=== PATIENT | female | born 1960 | race Caucasian/White ===

== ENCOUNTER 2025-02-24 09:10 | Outpatient (CLI) | payer OTHER, SELFPAY ==
--- NOTE | 2025-02-24 09:40 | NEURO_ITS ---
Impression: # Complains of pain in lower extremities. Significant edema bilaterally. # Extremely poor responses seen proximally with minimal dispersed responses. # Needle/ EMG exam with minimal motor unit potentials, also proximally. # Findings consistent with neuropathy but considering severe edema, clinical correlation recommended. Nerve Conduction Studies ?Stim Site NR Peak (ms) P-T Amp (?V) Site1 Site2 Delta-P (ms) Dist (cm) Leonardo (m/s) Left Sup Fibular Anti Sensory (Ant Lat Mall)??? NO RESPONSE 14 cm NR 14 cm Ant Lat Mall 16.0 Right Sup Fibular Anti Sensory (Ant Lat Mall)??? NO RESPONSE 14 cm NR 14 cm Ant Lat Mall 16.0 Left Sural Anti Sensory (Lat Mall)??? NO RESPONSE Calf NR Calf Lat Mall 16.0 Right Sural Anti Sensory (Lat Mall)??? NO RESPONSE Calf NR Calf Lat Mall 16.0 ?Stim Site NR Onset (ms) O-P Amp (mV) Site1 Site2 Delta-0 (ms) Dist (cm) Leonardo (m/s) Left Peroneal Motor (Vastus Med)??? NO RESPONSE Ankle ? 13.8 0.0 Popit Ankle 0.0 Popit NR Right Peroneal Motor (Vastus Med)??? NO RESPONSE Ankle ? 0.9 6.8 Popit Ankle 12.9 0.0 Popit ? 13.8 0.0 Left Tibial Motor (Abd Duenas Brev)??? NO RESPONSE Ankle NR Knee Ankle 0.0 Knee NR Right Tibial Motor (Abd Duenas Brev) Ankle ? 5.9 0.3 F Wave Studies ?NR F-Lat (ms) L-R F-Lat (ms) Left Peroneal (Mrkrs) (EDB)??? NO RESPONSE NR Right Peroneal (Mrkrs) (EDB)??? NO RESPONSE NR Left Tibial (Mrkrs) (Abd Hallucis)??? NO RESPONSE NR Right Tibial (Mrkrs) (Abd Hallucis)??? DISPERSED RESPONSE NR Electromyography ?Side Muscle Nerve Root Ins Act Fibs Amp Dur Recrt Comment Right AntTibialis Dp Br Fibular L4-5 Nml Nml Nml Nml Nml Right Gastroc Tibial S1-2 Nml Nml Nml Nml Nml Right Fibularis Long Sup Br Fibular L5-S1 Nml Nml Nml Nml Nml Right Flex Dig Long Tibial L5-S2 Nml Nml Nml Nml Nml Right Ext Dig Brev Dp Br Fibular L5, S1 Nml Nml Nml Nml Nml Right QuadratusFem QuadFemoris L4-5, S1 Nml Nml Nml Nml Nml Left AntTibialis Dp Br Fibular L4-5 Nml Nml Nml Nml Nml Left Gastroc Tibial S1-2 Nml Nml Nml Nml Nml Left Fibularis Long Sup Br Fibular L5-S1 Nml Nml Nml Nml Nml Left Flex Dig Long Tibial L5-S2 Nml Nml Nml Nml Nml Left Ext Dig Brev Dp Br Fibular L5, S1 Nml Nml Nml Nml Nml Left QuadratusFem QuadFemoris L4-5, S1 Nml Nml Nml Nml Nml
--- OUTSIDE RECORDS SUMMARY | 2025-02-24 09:46 | XMS_ITS | Clinical Summary ---
Author Organization [facility] Address [address] [place] [phone] Care Team Providers Care Exhibition Organiser Name Role Phone Miscellaneous, Not In File Unavailable Unava Rony Haley MD Primary Care Provider Allergies No known active allergies Medications clopidogrel (PLAVIX) 75 mg tablet Take 1 tablet (75 mg total) by mouth Active atorvastatin (LIPITOR) 80 mg tablet TK 1 T PO QD 2 8 Active aspirin 325 mg tablet Take by mouth. Activ e ACCU-CHEK KIMBERLY PLUS TEST STRP strip U 1 STRIP QD 3 8 Active ACCU-CHEK KIMBERLY PLUS METER misc U UTD 0 8 Active ACCU-CHEK SOFTCLIX LANCETS lancets USE DIRECTED TO TEST ONCE D 3 8 Active metFORMIN (GLUCOPHAGE) 500 mg tablet TK 1 T PO BID 2 8 Active omega 0-qei-xyu-fish oil 1,000 mg (120 mg-180 mg) capsule daily Active allopurinoL (ZYLOPRIM) 300 mg tablet Take 1 tablet (300 mg total) by mouth daily 2 Active albuterol HFA (PROVENTIL HFA,VENTOLIN HFA,PROAIR HFA) 90 mcg/actuation inhaler albuterol sulfate HFA 90 mcg/actuation aerosol inhaler INHALE 2 PUFFS BY MOUTH EVERY 4 TO 6 HOURS NEEDED Active hydroCHLOROthia zide (HYDRODIURIL) 25 mg tablet Take 1 tablet (25 mg total) by mouth daily 30 tablet 1 3 Active Additional Information Patient not taking.Reported on 12/14/[address] (CYMBALTA) 60 mg capsule Take 1 capsule (60 mg total) by mouth daily Active traMADoL (ULTRAM) 50 mg tablet 4 Active traZODone (DESYREL) 100 mg tablet TAKE 1/2 TO 1 TABLET BY MOUTH AT BEDTME NEEDED Active furosemide (LASIX) 40 mg tablet Take 1 tablet (40 mg total) by mouth daily 5 Active NIFEdipine CC 30 mg 24 hr tablet Take 1 tablet (30 mg total) by mouth daily 5 Active carvediloL (COREG) 25 mg tablet Take 1 tablet (25 mg total) by mouth 2 (two) times a day 5 Active Active Problems Problem Noted Date Diagnosed Date Low back pain 03/12/2023 Hyperkalemia 03/12/2023 COVID-19 03/11/2023 Hypertension, essential 12/13/2020 Carotid artery stenosis 12/13/2020 Dyslipidemia 12/13/2020 Knee pain 12/13/2020 Neck pain 12/13/2020 Shoulder pain 12/13/2020 Stress incontinence of urine 12/13/2020 Urinary tract infectious disease 12/13/2020 Type 2 diabetes mellitus with hyperlipidemia Venous insufficiency of leg 08/28/2017 Personal history of nicotine dependence 08/29/19 18 Carpal tunnel syndrome, left 08/14/2017 Calculus of gallbladder with acute cholecystitis without obstruction 03/05/2017 Assessment & Plan (03/05/2017 11:05 AM CDT): The procedure along with risks and benefits were explained to the patient and her . All questions were answered. The patient is on plavix so will schedule surgery for 5 days of holding this medication after speaking with prescribing physician. Patient was educated on diet. Encouraged to go to ER if fever spikes or symptoms become worse. Primary osteoarthritis of left knee 11/22/2016 Obesity 11/22/2016 Anxiety 03/24/2016 Atherosclerosis of renal artery 05/31/2015 Atherosclerosis of cachil dehe ar teries of extremities with intermittent claudication, unspecified extremity 05/11/2015 Cerebrovascular accident (CVA) 03/29/2015 Occlusion and stenosis of bilateral carotid valeriy yang 03/29/2015 Encounters Date Type Department Care Team Description 01/28/2025 1:00 PM CDT - 01/28/2025 11:59 PM CDT Hospital Encounter [facility] Respiratory [address] [place] [address] Discharge Disposition: Discharge to home or self care 01/25/2025 11:15 AM CDT [facility] [id number] [place] [address] Medical Office Building [address] [place] [phone] Lester Rivera MD Bilateral carotid artery stenosis (Primary Dx); PVD (peripheral vascular disease) with claudication; Morbid obesity (HCC); Renal artery stenosis 01/25/2025 Orders Only [facility] Medicine Surgery [id number] [place] [address] Office [facility] [address] [place] [phone] Lester Rivera MD Stenosis of carotid artery, unspecified laterality (Primary Dx); PVD (peripheral vascular disease) with claudication 01/19/2025 10:08 AM CDT - 01/19/2025 11:59 PM CDT Hospital Encounter [facility] Imaging and Radiology [address] [place] [address] Bilateral carotid artery stenosis Discharge Disposition: Discharge to home or self care 12/29/2024 11:58 AM CDT - 12/29/2024 11:59 PM CDT Hospital Encounter [facility] Vascular Lab [address] [place] [address] PVD (peripheral vascular disease) with claudication Discharge Disposition: Discharge to home or self care 12/29/2024 11:58 AM CDT - 12/29/2024 11:59 PM CDT Hospital Encounter [facility] Imaging and Radiology [address] [place], [place] [id number] PVD (peripheral vascular disease) with claudication Discharge Disposition: Discharge to home or self care 12/14/2024 11:45 AM CDT [facility] [address] [place] [address] Office Building [address] [place] [phone] Lester Rivera MD Bilateral carotid artery stenosis (Primary Dx); Stenosis of carotid artery, unspecified laterality; PVD (peripheral vascular disease) with claudication; Morbid obesity (HCC) 11/26/2024 Orders Only [facility] Medicine Surgery [address] [facility] Medical Office Building [address] [phone] Lester Rivera MD Stenosis of carotid artery, unspecified laterality (Primary Dx) from Last 3 Months Immunizations Immunization Administration Dates Next Due Influenza, Quadrivalent, Spl it, Preservative Free, Intramuscular 03/13/2023,03/23/2015 Pfizer SARS-CoV-2 Monovalent Vaccination (12+ Yrs) PURPLE 08/20/2020,07/30/2020 Surgical History Surgery Date Site/Laterality Comments CORONARY ARTERY BYPASS GRAFT OTHER SURGICAL HISTORY 06/03/2014 - 06/02/2015 Right carotid endarectomy CHOLECYSTECTOMY 03/11/2017 Laparoscopic cholecystectomy Medical History Medical History Date Comments Hypertension Hypercholesteremia Stroke (HCC) Social History Tobacco Use Types Packs/Day Years Used Date Smoking Tobacco: Former Smokeless Tobacco: Never Tobacco Cessation:Counseling Given: Not Answered Alcohol Use Standard Drinks/Week Comments No 0 (1 standard drink = 0.6 oz pur e alcohol) Social Connection and Isolation Panel Answer Date Recorded In a typical week, how many times do you talk on the phone with family, friends, or neighbors? More than three times a week 03/12/2023 How often do you get togethe r with friends or relatives? More than three times a week 03/12/2023 How often do you attend chur or cheondoism services? Never 03/12/2023 Do you belong to any clubs o r organizations such as judaism groups, unions, fraternal or athletic groups, or school groups? No 03/12/2023 How often do you attend meet ings of the clubs or organizations you belong to? Never 03/12/2023 Are you , , di vorced, , never , or living with a partner? 03/12/2023 AUDIT-C Answer Date Recorded Q1: How often do you have a drink containing alc ohol? Never 03/05/2024 Average Number of Drinks Not on file 024 Frequency of Binge Drinking Not on file 08/2023 Overall Financial Resource Strain (CARDIA) Answe r Date Recorded How hard is it for you to pa y for the very basics like food, housing, medical care, and heating? Hard 03/12/2023 Hunger Vital Sign Answer Date Recorded Within the past 12 months, y ou worried that your food would run out before you got the money to buy more. Never true 03/12/20 23 Within the past 12 months, t he food you bought just didn't last and you didn't have money to get more. Never true 03/12/2023 PRAPARE - Transportation Answer Date Re corded In the past 12 months, has l ack of transportation kept you from medical appointments or from getting medications? No 03/03 In the past 12 months, has l ack of transportation kept you from meetings, work, or from getting things needed for daily living? No 03/12/2023 Housing Stability Vital Sign Answer Andrew e Recorded In the last 12 months, was t here a time when you were not able to pay the mortgage or rent on time? No 03/12/2023 In the last 12 months, how many places have you lived? 1 03/12/2023 In the last 12 months, was t here a time when you did not have a steady place to sleep or slept in a alf (including now)? No 03/12/2023 Personal Safety Answer Date Recorded Have you ever been in or are you currently in a harmful physical or emotional relationship or is someone making you feel afraid or unsafe? Denies 03/11/2023 Education Answer Date Recorded What is the highest level of school you have completed or the highest degree you have received? 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 Gender Identity Not on file Sexual Orientation Not on file Obstetrics History Last Filed Vital Signs Vital Sign Reading Time Taken Comments Blood Pressure 198/88 01/25/2025 11:54 AM CDT Pulse 77 12/14/2024 10:50 AM CDT Temperature 36.2 C (97.1 F) 01/25/2025 11:09 AM CDT Respiratory Rate 16 03/13/2023 3:52 PM CDT Oxygen Saturation 95% 03/13/2023 3:52 PM CDT Inhaled Oxygen Concentration - - Weight 143.3 kg (316 lb) 01/25/2025 11:09 AM CDT Height 168.9 cm (5' 6.5) 12/14/2024 10:50 AM CD T Body Mass Index 50.24 12/14/2024 10:50 AM CDT Plan of Treatment Health Maintenance Due Date Last Done Comments Albumin Creatinine Ratio, Urine 1962 Breast Cancer Screening-Mammogram 1962 Cervical Cancer Screening 1962 Colon Cancer Screening-Colonoscopy 1962 Depression Screening 1962 Hemoglobin A1C 1962 Hepatitis C Screening 1962 Dilated Eye Exam 1962 Foot Exam 1962 DTaP/Tdap/Td Vaccine (1 - Tdap) 1973 Hepatitis B Screening 02/16/1980 Regular Well Visit/Exam 18-64 02/16/1980 Pneumococcal vaccine <65 (1 of 2 - PCV) 1981 Zoster Vaccine (1 of 2) 02/16/2012 Lipid Panel 03/06/2017 03/06/2016, 03/20/2015 eGFR 03/13/2024 03/13/2023, 03/03, 03/11/2023, Additional history exists Covid-19 Vaccine (3 - 2024-2 6 season) 2025 08/20/2020, 07/30/2020 Influenza Vaccine (#1) 2025 , 03/13/2023, 03/23/2015 Procedures Procedure Name Priority Date/Time Associated Diagnosis Comments BLOOD GAS, ARTERIAL STAT 01/28/2025 2:15 PM CDT CTA HEAD NECK W WO CONTRAST Schedule Routine, Read Routine (OP Routine) 01/19/2025 11:13 AM CDT Bilateral carotid artery stenosis US ARTERIAL DOPPLER LOWER EXTREMITY BILATERAL Schedule Routine, Read Routine (OP Routine) 12/29/2024 1:41 PM CDT PVD (peripheral vascular disease) with claudication CTA ABDOMINAL AORTA AND BILATERAL ILIOFEMORAL RUNOFF Schedule Routine, Read Routine (OP Routine) 12/29/2024 12:37 PM CDT PVD (peripheral vascular disease) with claudication POCT CREATININE FOR CONTRAST EVALUATION Routine 12/29/2024 12:13 PM CDT EGFR Routine 03/13/2023 3:37 AM CDT SERUM LIPID PANEL Routine 03/06/2016 3:1 7 AM CDT from Last 3 Months or Most Recently Relevant to Health Maintenance Results * (ABNORMAL) Blood gas, arterial (01/28/2025 2:15 PM CDT) pH, Art 7.41 7.35 - 7.45 PCO2, Arterial 46(H) 35 - 45 mmHg [facility] (ED) PO2, Arterial 68(L) 83 - 108 mmHg [facility] (ED) HCO3 Art (Calculated) 28 20 - 30 mmol/L [facility] (ED) BE, art 4 mmol/L [facility] (ED) Comment: Interpretive Data No Reference Range Established Current Interpretive Data was last revised on 2017 O2 Sat Art (Measured) 93 90 - 95 % [facility] (ED) Blood 01/28/2025 2:15 PM CDT 01/28/2025 2:19 PM CDT us Rony Sales DO LAB BLOOD ORDERABLES Final R esult AASHISH DELAROSA (OSCODA) 1 [facility] [place] [address] * CTA Head Neck W WO Contrast (01/19/2025 11:13 AM CDT) Anatomical Region Laterality Modality Head and Neck N/A Computed Tomogra phy 01/20/2025 8:32 AM CDT Impressions 01/22/2025 11:00 AM CDT Cervical left internal carotid bulb stenosis 50% by NASCET criteria . Cervical right internal carotid bulb stenosis 40% by NASCET criteria . Calcified plaque with moderate bilateral cavernous internal carotid stenosis. Moderate to severe right and moderate left vertebral origin stenosis. No intracranial large vessel occlusion or significant stenosis. Electronically signed by: Carlyn Liriano M.D. Narrative 01/22/2025 11:00 AM CDT EXAMINATION: CTA HEAD NECK W WO CONTRAST HISTORY: CAROTID STENOSIS TECHNIQUE: Noncontrast CT of the head was obtained from skull base to vertex, according to standard protocol. Subsequently, CT angiogram of the neck and [place] of [place] was performed after the uneventful intravenous administration of 122 mL Optiray 350 according to the head and neck angiography protocol with multiplanar reconstructions including thin MIPS obtained. 3-D postprocessing was performed by the technologist on a separate workstation, and submitted for review. Separate data acquisition was obtained. COMPARISON: None. FINDINGS: Motion artifact limits the study. HEAD CT FINDINGS: There is no acute intracranial hemorrhage. There is no noncontrast evidence of acute stroke. There is no vascular hyperdensity of the M1 segments or basilar artery. There are no periventricular and deep white matter hypodensities. There are no lacunar infarcts. Cerebral volume is typical for age. Ventricles are of normal size and morphology. There is no mass effect or midline shift. ANGIOGRAPHIC FINDINGS: Atherosclerotic aortic arch with moderate calcified and soft plaque is seen.. There is no significant stenosis of the origins of the great vessels. There is no geographic area of vascular paucity in the brain. Left anterior circulation: L CCA: Calcified plaque with moderate origin and distal stenosis. L carotid bifurcation: Calcified and soft plaque with moderate stenosis. L ICA proximal: Calcified and soft plaque with approximately 50 % stenosis by NASCET criteria at the proximal bulb. L ICA distal: Calcified plaque with moderate cavernous segment stenosis L ICA terminus: no occlusion or significant stenosis L M1: no occlusion or significant stenosis L M2 branches: no occlusion or significant stenosis L A2: no occlusion or significant stenosis Right anterior circulation: R CCA: no occlusion or significant stenosis R carotid bifurcation: Calcified and soft plaque with mild stenosis R ICA proximal: Calcified and soft plaque with approximately 40% stenosis by NASCET criteria R ICA distal: Calcified plaque with moderate cavernous segment stenosis R ICA terminus: no occlusion or significant stenosis R M1: no occlusion or significant stenosis R M2 branches: no occlusion or significant stenosis R A2: no occlusion or significant stenosis Posterior circulation: L Vertebral Artery: Soft plaque with moderate origin stenosis. R Vertebral Artery: Calcified plaque with moderate to severe origin stenosis Basilar Artery: no occlusion or significant stenosis L BIOINFORMATICS ANALYST: no occlusion or significant stenosis R BIOINFORMATICS ANALYST: no occlusion or significant stenosis The major dural venous sinuses are patent. No cerebral aneurysm is seen. There is no evidence for an arteriovenous malformation. There is no suspicious cervical lymphadenopathy. Moderate disc narrowing and spondylosis noted at C5-C6 and C6-C7. Mild anterolisthesis at C3-C4 and C4-C5 is noted probably due to facet arthropathy . Limited views of the lung apices are normal. Procedure Note Carlyn Liriano MD - 01/22/2025 EXAMINATION: CTA HEAD NECK W WO CONTRAST HISTORY: CAROTID STENOSIS TECHNIQUE: Noncontrast CT of the head was obtained from skull base to vertex, according to standard protocol. Subsequently, CT angiogram of the neck and [place] of [place] was performed after the uneventful intravenous administration of 122 mL Optiray 350 according to the head and neck angiography protocol with multiplanar reconstructions including thin MIPS obtained. 3-D postprocessing was performed by the technologist on a separate workstation, and submitted for review. Separate data acquisition was obtained. COMPARISON: None. FINDINGS: Motion artifact limits the study. HEAD CT FINDINGS: There is no acute intracranial hemorrhage. There is no noncontrast evidence of acute stroke. There is no vascular hyperdensity of the M1 segments or basilar artery. There are no periventricular and deep white matter hypodensities. There are no lacunar infarcts. Cerebral volume is typical for age. Ventricles are of normal size and morphology. There is no mass effect or midline shift. ANGIOGRAPHIC FINDINGS: Atherosclerotic aortic arch with moderate calcified and soft plaque is seen.. There is no significant stenosis of the origins of the great vessels. There is no geographic area of vascular paucity in the brain. Left anterior circulation: L CCA: Calcified plaque with moderate origin and distal stenosis. L carotid bifurcation: Calcified and soft plaque with moderate stenosis. L ICA proximal: Calcified and soft plaque with approximately 50 % stenosis by NASCET criteria at the proximal bulb. L ICA distal: Calcified plaque with moderate cavernous segment stenosis L ICA terminus: no occlusion or significant stenosis L M1: no occlusion or significant stenosis L M2 branches: no occlusion or significant stenosis L A2: no occlusion or significant stenosis Right anterior circulation: R CCA: no occlusion or significant stenosis R carotid bifurcation: Calcified and soft plaque with mild stenosis R ICA proximal: Calcified and soft plaque with approximately 40% stenosis by NASCET criteria R ICA distal: Calcified plaque with moderate cavernous segment stenosis R ICA terminus: no occlusion or significant stenosis R M1: no occlusion or significant stenosis R M2 branches: no occlusion or significant stenosis R A2: no occlusion or significant stenosis Posterior circulation: L Vertebral Artery: Soft plaque with moderate origin stenosis. R Vertebral Artery: Calcified plaque with moderate to severe origin stenosis Basilar Artery: no occlusion or significant stenosis L BIOINFORMATICS ANALYST: no occlusion or significant stenosis R BIOINFORMATICS ANALYST: no occlusion or significant stenosis The major dural venous sinuses are patent. No cerebral aneurysm is seen. There is no evidence for an arteriovenous malformation. There is no suspicious cervical lymphadenopathy. Moderate disc narrowing and spondylosis noted at C5-C6 and C6-C7. Mild anterolisthesis at C3-C4 and C4-C5 is noted probably due to facet arthropathy . Limited views of the lung apices are normal. IMPRESSION: Cervical left internal carotid bulb stenosis 50% by NASCET criteria . Cervical right internal carotid bulb stenosis 40% by NASCET criteria . Calcified plaque with moderate bilateral cavernous internal carotid stenosis. Moderate to severe right and moderate left vertebral origin stenosis. No intracranial large vessel occlusion or significant stenosis. Electronically signed by: Carlyn Liriano M.D. us Lester Rivera MD IMG CT PROCEDURES Final Resu lt * US SOLANGE And Arterial Doppler Lower Extremity Bilateral (12/29/2024 1:41 PM CDT) Anatomical Region Laterality Modality Vascular Bilateral Ultrasound 12/29/2024 4:53 PM CDT Impressions 12/29/2024 4:53 PM CDT RIGHT LEG:No evidence of arterial insufficiency at rest. The SOLANGE is normal and the TBI is normal. LEFT LEG:Possible isolated insufficiency in the DP territory, with borderline normal SOLANGE and monophasic waveform. The TBI is normal. Electronically signed by: Sarika Easley MD Narrative 12/29/2024 4:53 PM CDT EXAMINATION: BILATERAL LOWER EXTREMITY ANKLE BRACHIAL INDEX WITH DOPPLER DATE: 12/29/2024 1:00 PM HISTORY: PVD COMPARISON: CTA from 12/29/2024 TECHNIQUE: Standard technique was employed for bilateral lower extremity ABIs including Doppler images with spectral waveform analysis. FINDINGS: SITE PRESSURE INDEX RT BRACHIAL 154 RT ANKLE PT 156 1.01 RT ANKLE DP 143 0.93 RT DIGIT 108 0.70 Right dorsalis pedis waveform is multiphasic and the posterior tibial waveform is multiphasic. The digital waveform is Pulsatile LT BRACHIAL - LT ANKLE PT 144 0.94 LT ANKLE DP 138 0.90 LT DIGIT 106 0.69 Left dorsalis pedis waveform is Monophasic and the posterior tibial waveform is multiphasic. The digital waveform is Pulsatile Procedure Note Sarika Bojorquez MD - 12/29/2024 EXAMINATION: BILATERAL LOWER EXTREMITY ANKLE BRACHIAL INDEX WITH DOPPLER DATE: 12/29/2024 1:00 PM HISTORY: PVD COMPARISON: CTA from 12/29/2024 TECHNIQUE: Standard technique was employed for bilateral lower extremity ABIs including Doppler images with spectral waveform analysis. FINDINGS: SITE PRESSURE INDEX RT BRACHIAL 154 RT ANKLE PT 156 1.01 RT ANKLE DP 143 0.93 RT DIGIT 108 0.70 Right dorsalis pedis waveform is multiphasic and the posterior tibial waveform is multiphasic. The digital waveform is Pulsatile LT BRACHIAL - LT ANKLE PT 144 0.94 LT ANKLE DP 138 0.90 LT DIGIT 106 0.69 Left dorsalis pedis waveform is Monophasic and the posterior tibial waveform is multiphasic. The digital waveform is Pulsatile IMPRESSION: RIGHT LEG:No evidence of arterial insufficiency at rest. The SOLANGE is normal and the TBI is normal. LEFT LEG:Possible isolated insufficiency in the DP territory, with borderline normal SOLANGE and monophasic waveform. The TBI is normal. Electronically signed by: Sarika Easley MD us Lester Rivera MD IMG US PROCEDURES Final Resu lt * CTA Abdominal Aorta And Bilateral Iliofemoral Runoff (12/29/2024 12:37 PM CDT) Anatomical Region Laterality Modality Body Bilateral Computed Tomogra phy 12/30/2024 4:59 PM CDT Impressions 12/30/2024 4:59 PM CDT Short segment occlusion of the distal left common iliac artery reconstituted via large lumbar collaterals Short segment hemodynamically significant stenosis in the proximal right posterior tibial artery Very attenuated tibial vessels at the level of the ankles and below Electronically signed by: Francisco Cast M.D. Narrative 12/30/2024 4:59 PM CDT EXAMINATION: CT ANGIOGRAPHY OF THE ABDOMEN, PELVIS, AND LOWER EXTREMITIES WITH CONTRAST HISTORY: Peripheral vascular disease TECHNIQUE: CT angiography of the abdomen, pelvis, and lower extremities was performed following the uneventful intravenous administration of 117 ml Optiray-350. Vascular 3D images were generated on a dedicated workstation and also reviewed. FINDINGS: No prior studies are available for comparison. VASCULAR FINDINGS: Abdominal Aorta and Branches: Celiac axis: no significant stenosis SMA: no significant stenosis ALEJANDRO: no significant stenosis Right renal vessels: no significant stenosis Left renal vessels: no significant stenosis Infrarenal aorta: no significant stenosis. No aneurysm. Pelvic Vessels: R. Common iliac artery: no significant stenosis R. External iliac artery: no significant stenosis R. Internal iliac artery: no significant stenosis L. Common iliac artery: Large quantity of intraluminal plaque and other filling defect resulting in complete distal occlusion. L. External iliac artery: no significant stenosis L. Internal iliac artery: no significant stenosis Right Lower Extremity: R. Common femoral artery: no significant stenosis R. Profunda femoris artery: no significant stenosis R. Superficial femoral artery: no significant stenosis R. Popliteal artery: no significant stenosis R. Anterior tibial artery: no significant stenosis R. Tibioperoneal trunk: no significant stenosis R. Posterior tibial artery: Short segment high-grade stenosis likely approximately 70% or more. R. Peroneal artery: no significant stenosis R. Dorsalis pedis artery: Very attenuated too small to further characterize R. Plantar artery: Very attenuated too small to further characterize Left Lower Extremity: L. Common femoral artery: no significant stenosis L. Profunda femoris artery: no significant stenosis L. Superficial femoral artery: no significant stenosis L. Popliteal artery: no significant stenosis L. Anterior tibial artery: no significant stenosis L. Tibioperoneal trunk: no significant stenosis L. Posterior tibial artery: no significant stenosis L. Peroneal artery: no significant stenosis L. Dorsalis pedis artery: Very attenuated too small to characterize further L. Plantar artery: Very attenuated too small to characterize further NON-VASCULAR FINDINGS: Lung bases are unremarkable. The liver, pancreas, and adrenal glands are unremarkable. Right kidney is unremarkable. There is severe atrophy of the left kidney. There is been prior cholecystectomy. The spleen contains a hypodensity anterior and posterior similar in size at about 15 mm appearing cystic. The bowel pattern is unremarkable with scattered diverticulosis. There is a 25 mm right ovarian cyst. Uterus is unremarkable. Urinary bladder is unremarkable. Procedure Note Francisco Cast MD - 12/30/2024 EXAMINATION: CT ANGIOGRAPHY OF THE ABDOMEN, PELVIS, AND LOWER EXTREMITIES WITH CONTRAST HISTORY: Peripheral vascular disease TECHNIQUE: CT angiography of the abdomen, pelvis, and lower extremities was performed following the uneventful intravenous administration of 117 ml [id number]. Vascular 3D images were generated on a dedicated workstation and also reviewed. FINDINGS: No prior studies are available for comparison. VASCULAR FINDINGS: Abdominal Aorta and Branches: Celiac axis: no significant stenosis SMA: no significant stenosis ALEJANDRO: no significant stenosis Right renal vessels: no significant stenosis Left renal vessels: no significant stenosis Infrarenal aorta: no significant stenosis. No aneurysm. Pelvic Vessels: R. Common iliac artery: no significant stenosis R. External iliac artery: no significant stenosis R. Internal iliac artery: no significant stenosis L. Common iliac artery: Large quantity of intraluminal plaque and other filling defect resulting in complete distal occlusion. L. External iliac artery: no significant stenosis L. Internal iliac artery: no significant stenosis Right Lower Extremity: R. Common femoral artery: no significant stenosis R. Profunda femoris artery: no significant stenosis R. Superficial femoral artery: no significant stenosis R. Popliteal artery: no significant stenosis R. Anterior tibial artery: no significant stenosis R. Tibioperoneal trunk: no significant stenosis R. Posterior tibial artery: Short segment high-grade stenosis likely approximately 70% or more. R. Peroneal artery: no significant stenosis R. Dorsalis pedis artery: Very attenuated too small to further characterize R. Plantar artery: Very attenuated too small to further characterize Left Lower Extremity: L. Common femoral artery: no significant stenosis L. Profunda femoris artery: no significant stenosis L. Superficial femoral artery: no significant stenosis L. Popliteal artery: no significant stenosis L. Anterior tibial artery: no significant stenosis L. Tibioperoneal trunk: no significant stenosis L. Posterior tibial artery: no significant stenosis L. Peroneal artery: no significant stenosis L. Dorsalis pedis artery: Very attenuated too small to characterize further L. Plantar artery: Very attenuated too small to characterize further NON-VASCULAR FINDINGS: Lung bases are unremarkable. The liver, pancreas, and adrenal glands are unremarkable. Right kidney is unremarkable. There is severe atrophy of the left kidney. There is been prior cholecystectomy. The spleen contains a hypodensity anterior and posterior similar in size at about 15 mm appearing cystic. The bowel pattern is unremarkable with scattered diverticulosis. There is a 25 mm right ovarian cyst. Uterus is unremarkable. Urinary bladder is unremarkable. 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 us Lester Rivera MD IMG CT PROCEDURES Final Resu lt * (ABNORMAL) POCT creatinine for contrast evaluation (12/29/2024 12:13 PM CDT) Creatinine, POC 1.8(A) 0.6 - 1.3 mg/dL Blood 12/29/2024 12:1 3 PM CDT us Lester Rivera MD POINT OF CARE TEST ORDERABLE S Final Result * eGFR (03/13/2023 3:37 AM CDT) eGFR 46 mL/min/1. 73 m2 Comment: Interpretive Data Reference Interval Normal >/= 90 mL/min/1.73m2 Mildly decreased* 60 - 89 mL/min/1.73m2 Mildly to moderately decreased 45 - 59 mL/min/1.73m2 Moderately to severely decreased 30 - 44 mL/min/1.73m2 Severely decreased 15 - 29 mL/min/1.73m2 Kidney Failure < 15 mL/min/1.73m2 *Relative to young adult level Estimated glomerular filtration rate is determined by the 2020 CKD-EPI equation recommended by the National Kid[employer] (A Unifying Approach to GFR Estimation: Recommendations of the NKF-ASK Task Force on Reassessing the Inclusion of Race in Diagnosing Kidney Disease, JASN 2020). The CKD-EPI equation should not be used for patients with unstable renal function and has not been validated in children and those over 70. Current interpretive data was last reviewed 2021. Blood 03/13/2023 3:37 AM CDT 03/13/2023 4:11 AM CDT us Jennifer Dowling MD LAB BLOOD ORDERABLES Kandi simmons Result [facility] Department [place] [address] * (ABNORMAL) Serum lipid panel (03/06/2016 3:17 AM CDT) Cholesterol 143 40 - 199 mg/dl CDR HISTORICAL RESULTS Comment: Interpretive Data Desirable: Less than 200 mg/dl Borderline High: 200 - 239 mg/dl High: Greater than 239 mg/dl Current interpretive data was last revised on 2014. Triglycerides 376(H) <=150 mg/dl CDR HISTORICAL RESULTS Comment: Interpretive Data Normal: Less than 150 mg/dl Borderline high: 105-199 mg/dl High: 200-499 mg/dl Very high: Greater than or equal to 500 mg/dl Current interpretive data was last revised on 2014. HDL 23(L) 40 - 60 mg/dl CDR HISTORICAL RESULTS Comment: Interpretive Data Low HDL Cholesterol: Less than 40 mg/dl Normal HDL Cholesterol: 40-60 mg/dl High HDL Cholesterol: Greater than 60 mg/dl Current interpretive data was last revised on 2014. LDL 45 mg/dl CDR HISTOR ICAL RESULTS Comment: Interpretive Data Optimal Less than 100 mg/dL Near optimal/Above optimal 100 - 129 mg/dL Borderline high 130 - 159 mg/dL High 160 - 189 mg/dL Very high Greater than or = 190 mg/dL LDL values are not valid when the total Triglyceride is greater than 300 mg/dL. Current interpretive data was last revised on 2014. Non-HDL cholesterol, calculated 120 mg/dl CDR HISTORICAL RESULTS Comment: Interpretive Data Optimal Less than 130 mg/dL Low Risk 130 - 159 mg/dL Moderate Risk 160 - 189 mg/dL High Risk Greater than or equal to 190 mg/dL Current interpretive data was last revised on 2014. Serum 03/06/2016 3:17 AM CDT us Historical Provider LAB BLOOD ORDERABLES Kandi simmons Result CDR HISTORICAL RESULTS from Last 3 Months or Most Recently Relevant to Health Maintenance Insurance [facility] Advance Directives For more information, please contact: [phone] * Full Code (Latest Code Status on File) Date Activated Date Inactivated Comments 03/11/2023 1:12 PM 03/13/2023 8:35 PM Care Teams Exhibition Organiser Relationship Specialty Start Date End Date Rony Sales MD PCP - General Internal Medicine 10/16/24 Miscellaneous, Not In File 03/13/23
--- OUTSIDE RECORDS SUMMARY | 2025-02-24 09:46 | XMS_ITS | Clinical Summary ---
Author Organization [facility] Address [address] [facility], [place] [address] Phone Care Team Providers Care Radio Message Router Name Role Phone Rony Sales MD Primary Care Provider [phone] Allergies No known active allergies Medications aspirin (GOODSENSE ASPIRIN) 325 MG Tablet Take by mouth. Active atorvastatin (LIPITOR) 10 MG Tablet Take by mouth. Active clopidogrel (PLAVIX) 75 MG Tablet Take by mouth. Active lisinopril-hydr oCHLOROthiazide (PRINZIDE, ZESTORETIC) 20-25 MG Tablet Take by mouth. Active [place]-3 Fatty Acids (FISH OIL PO) Take by mouth. Active metoprolol tartrate (LOPRESSOR) 12.5 mg Tablet Take 25 mg by mouth 2 times daily. Active ketorolac (TORADOL) 10 MG Tablet Take 1 Tablet by mouth every 6 hours as needed for Moderate or more severe pain. 20 Tablet 10/22/2023 Active Social History Tobacco Use Types Packs/Day Years Used Date Smoking Tobacco: Former Tobacco Cessation:Counseling Given: No Alcohol Use Standard Drinks/Week Comments No 0 (1 standard drink = 0.6 oz pur e alcohol) Comments No Sex and Gender Information Value Date Recorded Sex Assigned at Not on file Legal Sex Female 12:22 AM CDT Gender Identity Not on file Sexual Orientation Not on file Last Filed Vital Signs Vital Sign Reading Time Taken Comments Blood Pressure 188/92 10/23/2023 1:00 AM CDT Pulse 78 10/23/2023 1:00 AM CDT Temperature 37 C (98.6 F) 10/22/2023 6:21 PM CDT Respiratory Rate 16 10/23/2023 1:00 AM CDT Oxygen Saturation 100% 10/23/2023 1:00 AM CDT Inhaled Oxygen Concentration - - Weight 131.5 kg (290 lb) 10/22/2023 6:21 PM CDT Height 170.2 cm (5' 7) 10/22/2023 6:21 PM CDT Body Mass Index 45.42 10/22/2023 6:21 PM CDT Plan of Treatment Health Maintenance Due Date Last Done Comments Hepatitis C Virus (HCV) Screening 1962 Mammogram 1962 TdaP Immunization 1962 Pap Smear 1983 Cervical Cancer Screening (CCS) 02/16/1992 HPV/Cotest 02/16/1992 Cologuard 2007 Colonoscopy 2007 Colorectal Cancer Screening 2007 Immunochemical Fecal Occult Blood 2007 Pneumococcal Immunization (5 0+ years) (1 of 1 - PCV) 02/16/2012 Zoster Immunization (1 of 2) 02/16/2012 Respiratory Syncytial Virus (RSV) Immunization (Adult) (1 - Risk 60-74 years 1-dose series) 2022 Influenza Immunization (#1) 02/01/202503/03, 03/23/2015 SARS-COV-2 Immunization (3 - 2024- season) 2025 08/20/2020, 07/30/2020 Hepatitis B Immunization Aged Out No longer eligible based on patient's age to complete this topic Human Papillomavirus (HPV) Immunization Aged Out No longer eligible b ased on patient's age to complete this topic Meningococcal Immunization (ACWY) Aged Out No longer eligible b ased on patient's age to complete this topic Rotavirus Immunization Aged Out No lo nger eligible based on patient's age to complete this topic Care Teams Radio Message Router Relationship Specialty Start Date End Date Rony Sales MD PCP - General Internal Medicine 10/31/16
== END 2025-02-24 09:11 | disposition home or self-care (01) ==
LOC: ANHNEURO 09:12
PROVIDERS: PCP Internal Medicine; Visit Provider Internal Medicine
DX: M79.604 Pain in right leg (principal); M79.605 Pain in left leg
CPT/HCPCS: 95886; 95910